=== PATIENT | female | born 1975 | race Caucasian/White ===

== ENCOUNTER 2018-06-22 12:11 | Emergency (ER) | END 2018-06-22 17:26 | disposition home or self-care (01) ==

== ENCOUNTER 2019-03-24 23:56 | Emergency (ER) | payer BC ==
[~2019-03-24] VITALS: Ht 167.6 cm; Wt 90.8 kg
[~2019-03-24 23:56] MED LIST: CIPR-193 PO; COLC0.6T6 PO; IBUP-1542 PO; IBUP-1561 PO
[2019-03-24 23:58] VITALS: Ht 167.6 cm; Wt 90.8 kg
[2019-03-25] MEDS ORDERED: KETOROLAC 30 MG INJ IV STA (00:58)
[2019-03-25 02:28] VITALS: BP 134/72; PULSE 77; RESP 20
== END 2019-03-25 02:29 | disposition home or self-care (01) ==
LOC: E/R 23:56
DX: I30.9 Acute pericarditis, unspecified (principal); R40.2142 Coma scale, eyes open, spontaneous, at arrival to emergency department; R40.2252 Coma scale, best verbal response, oriented, at arrival to emergency department; R40.2362 Coma scale, best motor response, obeys commands, at arrival to emergency department; F17.210 Nicotine dependence, cigarettes, uncomplicated
CPT/HCPCS: 71045; 80048; 81025; 84484; 85025; 93005; 96374; 99284; J1885